=== PATIENT | female | born 1995 | race Caucasian/White ===

== ENCOUNTER 2017-05-27 11:59 | Day surgery (SDC) | payer BC ==
[~2017-05-27 11:59] MED LIST: Buffered Lidocaine 0.9% SYRIN* 5 ML/SYR SYRINGE INTRADERM ONE; Famotidine IV* 10 MG/ML 2 ML (20 mg) IV ONE; Morphine INJ* 2 MG/ML 1 ML SYRINGE IV PRN; PROCHLORPERAZINE INJ 5 MG/ML 2 ML VIAL IV PRN; fentaNYL* 50 MCG/ML 2 ML VIAL (100 MCG VIAL) IV PRN; oxyCODONE/Acetamin 5/325 MG* TAB PO PRN
[2017-05-27] MEDS ORDERED: Famotidine IV* 10 MG/ML 2 ML (20 mg) ONE (12:06)
[2017-05-27] MEDS ORDERED: Buffered Lidocaine 0.9% SYRIN* 5 ML/SYR SYRINGE ONE (12:07)
[2017-05-27 12:08] LABS: UR Preg Internal Control QC Line Present
[2017-05-27] MEDS ORDERED: KETAMINE HCL* 50 MG/ML 10 ML VIAL ONE (13:12)
[2017-05-27] MEDS ORDERED: fentaNYL* 50 MCG/ML 2 ML VIAL (100 MCG VIAL) ONE ×2 (13:12→14:08)
[2017-05-27] MEDS ORDERED: Midazolam* 1 MG/ML 2 ML VIAL (2 MG) ONE (13:12)
[2017-05-27] MEDS ORDERED: Neostigmine Methylsulfate* 2 MG/2 ML SYRINGE ONE ×2 (13:42→13:50)
[2017-05-27] MEDS ORDERED: Propofol* 10 MG/ML 20 ML BTL IV PUSH ONE (13:42)
[2017-05-27] MEDS ORDERED: Lidocaine 2% PF * 5 ML VIAL ONE (13:42)
[2017-05-27] MEDS ORDERED: Dexamethasone IV* 4 MG/ML 1 ML (4 MG) ONE (13:42)
[2017-05-27] MEDS ORDERED: Ondansetron INJ* 2 MG/ML VIAL ONE (13:42)
[2017-05-27] MEDS ORDERED: PROCHLORPERAZINE INJ 5 MG/ML 2 ML VIAL ONE ×2 (13:42→15:20)
[2017-05-27] MEDS ORDERED: Glycopyrrolate IV* 0.2 MG/ML 1 ML VIAL ONE ×2 (13:42→13:50)
[2017-05-27 15:55] VITALS: BP 103/74
--- NOTE | 2017-05-28 10:36 | OP ---
DATE OF OPERATION: 05/27/17 - SDS DATE OF : [birth year] SURGEON: Aniceto Sal MD ANESTHESIOLOGIST: Moises Ruvalcaba MD ANESTHESIA: General PRE-OP DIAGNOSIS: Chronic tonsillitis. POST-OP DIAGNOSIS: Chronic tonsillitis. OPERATIVE PROCEDURE: Tonsillectomy under general endotracheal anesthesia. COMPLICATIONS: None. DISPOSITION: Good. SPECIMENS: Tonsils. BLOOD LOSS: Minimum. DESCRIPTION OF PROCEDURE: Patient was taken to the operating room and placed in the supine position on the operating table, maintained with orotracheal intubation and general anesthesia. Patient was turned and draped for the surgery. Rickey- Alexander mouth gag was inserted, traction was applied, suspended from the Morin stand. The right tonsil was grasped, manual traction applied. Using Bovie cautery, it was dissected along its capsule, removing it from the underlying pharyngeal musculature. Left tonsil was grasped, manual traction was applied. Using Bovie cautery, it was dissected along its capsule, removing it from the underlying pharyngeal musculature. Hemostasis was ensured in both tonsillar fossa using the suction cautery. Once the hemostasis was ensured, the adenoid bed was visualized. There is no appreciable adenoid tissue. Orogastric tube was inserted into the stomach, stomach contents were suctioned. Rickey-Alexander mouth gag was released and removed. The patient tolerated the procedure well, no complications, transferred to the recovery room in stable condition. [id number]/CPS #: [id number] MTDD
== END 2017-05-27 15:58 | disposition home or self-care (01) ==
LOC: OR 11:59
PROVIDERS: ATTEND Otolaryngology
DX: J35.01 Chronic tonsillitis (principal); J03.01 Acute recurrent streptococcal tonsillitis; Z88.1 Allergy status to other antibiotic agents; Z88.0 Allergy status to penicillin
CPT/HCPCS: 81025; 88304; J0780; J1100; J2250; J2405; J2704; J3010

== ENCOUNTER 2019-09-01 18:37 | Emergency (ER) | payer BC, OTHER ==
--- OUTSIDE RECORDS SUMMARY | 2019-09-01 18:53 | XMS REPORT | Continuity of Care Document ---
:1995 External Reference #:[id number] Author Name Xochitl Mari MD (transmitted by agent of provider Wendy San) Address [address], [place] [address] Care Team Providers Name Role Phone Yoel Oh MD - Internal Care Team Information [employer] [phone] Medicine Problems Active Problems Provider Date Postconcussion syndrome Yoel Oh M.D. Onset: 09/25/2016 Gallstone Yoel Oh M.D. Onset: 02/27/2016 Abdominal pain Yoel Oh M.D. Onset: 02/27/2016 Social History Type Date Description Comments Sex Unknown ETOH Use Drinks Alcoholic Beverages Rarely Tobacco Use Start: Unknown Patient has never smoked Recreational Drug Use Denies Drug Use Smoking Status Reviewed: 07/25/19 Patient has never smoked Allergies, Adverse Reactions, Alerts Active Allergies Reaction Severity Comments Date Penicillins Urticaria Moderate 02/06/2016 ALL Antibiotics Urticaria Moderate ALL Antibiotics 06/10/2017 Medications Active Medications SIG Qnty Indications Ordering Provider Date Ibuprofen as needed Unknown 200mg Capsules Immunizations CPT Code Status Date Vaccine Lot # [id number] Given 06/16/2017 Tdap - Tetanus/Diptheria/Acellular Pertussis [id number] Vital Signs Date Vital Result Comment 07/25/2019 9:59am Height 68 inches 5'8" Weight 134.00 lb Heart Rate 64 /min BP Systolic Sitting 115 mmHg BP Diastolic Sitting 74 mmHg Body Temperature 97.7 F O2 % BldC Oximetry 99 % BMI (Body Mass Index) 20.4 kg/m2 06/10/2017 7:42am Height 68 inches Weight 132.00 lb Heart Rate 58 /min BP Systolic Sitting 112 mmHg BP Diastolic Sitting 60 mmHg Body Temperature 97.7 F O2 % BldC Oximetry 98 % BMI (Body Mass Index) 20.1 kg/m2 Results Description No Information Available Procedures Description No Information Available Medical Devices Description No Information Available Encounters Description No Information Available Assessments Date Code Description Provider 07/25/2019 S99.922A Unspecified injury of left foot, initial Xochitl Mari MD encounter Plan of Treatment 07/25/2019 - NACHO Scott99.922A Unspecified injury of left foot, initial encounterReferral:Kylah Sinha DPM, Physician Office Clin Asst Functional Status Description No Information Available Mental Status Description No Information Available Referrals Refer to Dr Reason for Referral Status Appt Date Kylah Sinha DPM Sent [address] [place] [id number] [phone]
[2019-09-01 19:10] LABS: Urine Appearance Cloudy; Urine Bacteria 1+ (Absent); Urine Bilirubin Negative (Negative); Urine Blood 2+ (Negative); Urine Color Yellow; Urine Glucose Negative (Negative); Urine Ketones Negative (Negative); Urine Nitrite Negative (Negative); Urine Protein 3+(>=500 mg/dL) (Negative); Urine Red Blood Cell 3+(>10/hpf) (Absent); Urine Specific Gravity 1.011 (1.010-1.030); Urine Squamous Epithelial Cell Present (Absent); Urine Urobilinogen Negative (Negative); Urine White Blood Cell 3+(>20/hpf) (Absent)
[2019-09-01 19:58] LABS: ABS Basophils 0.1 10^3/ul (0-0.2); ABS Eosinophils 0.1 10^3/ul (0-0.6); ABS Lymphocytes 2.4 10^3/ul (1.0-4.8); ABS Monocytes 0.8 10^3/ul (0-0.8); ABS Neutrophils 6.7 10^3/ul (1.5-7.7); Eosinophil % 0.9 %; Hematocrit 39 % (35-47); Hemoglobin 13.4 g/dL (12.0-16.0); Lymphocyte % 23.6 %; Mean Corpuscular HGB Conc 34 g/dL (31-36); Mean Corpuscular Hemoglobin 32 pg (27-31); Mean Corpuscular Volume 93 fL (80-97); Platelet Count 191 10^3/uL (150-450); Red Blood Count 4.24 10^6 /uL (3.70-4.87); Red Cell Distribution Width 14 % (10-15); White Blood Count 10.2 10^3/uL (3.5-10.8)
[2019-09-01 20:09] LABS: Activated Partial Thrombo Time 33.4 seconds (26.0-38.0); INR 1.03 (0.82-1.09)
[2019-09-01 20:14] LABS: ALT 6 U/L (7-52); AST 13 U/L (13-39); Alkaline Phosphatase 26 U/L (34-104); Anion Gap 6 mmol/L (2-11); BUN/Creatinine Ratio 13.6 (8-20); Blood Urea Nitrogen 11 mg/dL (6-24); CO2 Carbon Dioxide 30 mmol/L (22-32); Calcium 9.7 mg/dL (8.6-10.3); Chloride 101 mmol/L (101-111); EGFR African American 103.4 (>60); EGFR Non-African American 85.5 (>60); Globulin 2.5 g/dL (2-4); Glucose 94 mg/dL (70-100); Potassium 3.8 mmol/L (3.5-5.0); Sodium 137 mmol/L (135-145); Total Protein 7.5 g/dL (6.4-8.9)
[2019-09-01 20:21] LABS: HCG Pregnancy < 0.60 mIU/mL
[2019-09-01] MEDS ORDERED: Ciprofloxacin TAB* 500 MG PO ONE (20:58)
--- NOTE | 2019-09-01 20:59 | ED ---
GI/ HPI - HPI Summary HPI Summary: 24-year-old female presents with flank pain today. She had UTI symptoms about two weeks ago that she thought resolved after she drank cranberry juice. States the dysuria and urgency returned today. States she felt feverish and has chills. Denies any abdominal pain. No vaginal discharge. Denies any nausea or vomiting. denies any diarrhea or constipation. She has no history of UTI. Is currently being treated for athlete feet. - History of Current Complaint Chief Complaint: EDFlankPain Time Seen by Provider: 09/01/19 20:47 Stated Complaint: POSS UTI,KIDNEY PAIN PER PT Hx Last Menstrual Period: 05/19/14 Pain Intensity: 5 - Allergy/Home Medications Allergies/Adverse Reactions: Allergies Allergy/AdvReac Type Severity Reaction Status Date / Time azithromycin Allergy Rash Verified 09/01/19 18:44 clindamycin Allergy Rash Verified 09/01/19 18:44 Penicillins Allergy Unknown Verified 09/01/19 18:44 Reaction Details sulfamethoxazole Allergy Rash Verified 09/01/19 18:44 [From Bactrim] trimethoprim [From Bactrim] Allergy Rash Verified 09/01/19 18:44 Home Medications: Home Medications Terbinafine HCl 250 mg PO DAILY 09/01/19 [History Confirmed 09/01/19] PMH/Surg Hx/FS Hx/Imm Hx Endocrine/Hematology History: Reports: Hx Anemia - CURRENTLY Denies: Hx Diabetes, Hx Systemic Lupus Erythematosus Cardiovascular History: Denies: Hx Congestive Heart Failure, Hx Hypertension History: Denies: Hx Dialysis, Hx Renal Disease Musculoskeletal History: Denies: Hx Rheumatoid Arthritis Sensory History: Reports: Hx Contacts or Glasses - GLASSES Denies: Hx Hearing Aid Opthamlomology History: Reports: Hx Contacts or Glasses - GLASSES - Cancer History Hx Chemotherapy: No - Surgical History Surgery Procedure, Year, and Place: IUD 6 months ago; skin moles removed found benign; denies any other surgeries Infectious Disease History: No Infectious Disease History: Denies: Traveled Outside the [place] in Last 30 Days - Family History Known Family History: Positive: None - Social History Alcohol Use: None Alcohol Amount: 3 DRINKS PER WEEK Substance Use Type: Reports: None Smoking Status (MU): Never Smoked Tobacco Have You Smoked in the Last Year: No Review of Systems Positive: Fever, Chills Negative: Chest Pain Negative: Shortness Of Breath Negative: Abdominal Pain Positive: dysuria, flank pain All Other Systems Reviewed And Are Negative: Yes Physical Exam Triage Information Reviewed: Yes Vital Signs On Initial Exam: Initial Vitals Temp Pulse Resp BP Pulse Ox 99.2 F 75 16 130/92 98 09/01/19 18:39 09/01/19 18:39 09/01/19 18:39 09/01/19 18:39 09/01/19 18:39 Vital Signs Reviewed: Yes Appearance: Positive: Well-Appearing Skin: Positive: Warm, Dry Head/Face: Positive: Normal Head/Face Inspection Eyes: Positive: Normal, Conjunctiva Clear ENT: Positive: Pharynx normal Respiratory/Lung Sounds: Positive: Clear to Auscultation, Breath Sounds Present Cardiovascular: Positive: Normal, RRR Abdomen Description: Positive: Nontender, Soft, CVA Tenderness (R). Negative: CVA Tenderness (L) Bowel Sounds: Positive: Present Musculoskeletal: Positive: Normal Neurological: Positive: Normal Psychiatric: Positive: Normal Procedures - Sedation Patient Received Moderate/Deep Sedation with Procedure: No Diagnostics - Vital Signs Vital Signs Temp Pulse Resp BP Pulse Ox 09/01/19 20:41 97.9 F 83 16 135/89 99 09/01/19 18:39 99.2 F 75 16 130/92 98 - Laboratory Lab Results: Lab Results 09/01/19 09/01/19 09/01/19 Range/Units 18:55 19:47 19:47 WBC 10.2 (3.5-10.8) 10^3/uL RBC 4.24 (3.70-4.87) 10^6 /uL Hgb 13.4 (12.0-16.0) g/dL Hct 39 (35-47) % MCV 93 (80-97) fL MCH 32 H (27-31) pg MCHC 34 (31-36) g/dL RDW 14 (10-15) % Plt Count 191 (150-450) 10^3/uL MPV 9.0 (7.4-10.4) fL Neut % (Auto) 66.5 % Lymph % (Auto) 23.6 % Gonzales % (Auto) 8.4 % Eos % (Auto) 0.9 % Baso % (Auto) 0.6 % Absolute Neuts (auto) 6.7 (1.5-7.7) 10^3/ul Absolute Lymphs (auto) 2.4 (1.0-4.8) 10^3/ul Absolute Monos (auto) 0.8 (0-0.8) 10^3/ul Absolute Eos (auto) 0.1 (0-0.6) 10^3/ul Absolute Basos (auto) 0.1 (0-0.2) 10^3/ul Absolute Nucleated RBC 0.0 10^3/ul Nucleated RBC % 0.0 INR (Anticoag Therapy) (0.82-1.09) APTT (26.0-38.0) seconds Sodium 137 (135-145) mmol/L Potassium 3.8 (3.5-5.0) mmol/L Chloride 101 (101-111) mmol/L Carbon Dioxide 30 (22-32) mmol/L Anion Gap 6 (2-11) mmol/L BUN 11 (6-24) mg/dL Creatinine 0.81 (0.51-0.95) mg/dL Est GFR ( Amer) 103.4 (>60) Est GFR (Non-Af Amer) 85.5 (>60) BUN/Creatinine Ratio 13.6 (8-20) Glucose 94 (70-100) mg/dL Lactic Acid (0.5-2.0) mmol/L Calcium 9.7 (8.6-10.3) mg/dL Total Bilirubin 0.60 (0.2-1.0) mg/dL AST 13 (13-39) U/L ALT 6 L (7-52) U/L Alkaline Phosphatase 26 L (34-104) U/L Total Protein 7.5 (6.4-8.9) g/dL Albumin 5.0 (3.2-5.2) g/dL Globulin 2.5 (2-4) g/dL Albumin/Globulin Ratio 2.0 (1-3) Beta HCG, Quant < 0.60 mIU/mL Urine Color Yellow Urine Appearance Cloudy Urine pH 9.0 (5-9) Ur Specific [place] 1.011 (1.010-1.030) Urine Protein 3+(>=500 mg/dl) A (Negative) Urine Ketones Negative (Negative) Urine Blood 2+ A (Negative) Urine Nitrate Negative (Negative) Urine Bilirubin Negative (Negative) Urine Urobilinogen Negative (Negative) Ur Leukocyte Esterase 2+ A (Negative) Urine WBC (Auto) 3+(>20/hpf) A (Absent) Urine RBC (Auto) 3+(>10/hpf) A (Absent) Ur Squamous Epith Cells Present A (Absent) Urine Bacteria 1+ A (Absent) Urine Glucose Negative (Negative) 09/01/19 09/01/19 Range/Units 19:47 19:48 WBC (3.5-10.8) 10^3/uL RBC (3.70-4.87) 10^6 /uL Hgb (12.0-16.0) g/dL Hct (35-47) % MCV (80-97) fL MCH (27-31) pg MCHC (31-36) g/dL RDW (10-15) % Plt Count (150-450) 10^3/uL MPV (7.4-10.4) fL Neut % (Auto) % Lymph % (Auto) % Gonzales % (Auto) % Eos % (Auto) % Baso % (Auto) % Absolute Neuts (auto) (1.5-7.7) 10^3/ul Absolute Lymphs (auto) (1.0-4.8) 10^3/ul Absolute Monos (auto) (0-0.8) 10^3/ul Absolute Eos (auto) (0-0.6) 10^3/ul Absolute Basos (auto) (0-0.2) 10^3/ul Absolute Nucleated RBC 10^3/ul Nucleated RBC % INR (Anticoag Therapy) 1.03 (0.82-1.09) APTT 33.4 (26.0-38.0) seconds Sodium (135-145) mmol/L Potassium (3.5-5.0) mmol/L Chloride (101-111) mmol/L Carbon Dioxide (22-32) mmol/L Anion Gap (2-11) mmol/L BUN (6-24) mg/dL Creatinine (0.51-0.95) mg/dL Est GFR ( Amer) (>60) Est GFR (Non-Af Amer) (>60) BUN/Creatinine Ratio (8-20) Glucose (70-100) mg/dL Lactic Acid 0.6 (0.5-2.0) mmol/L Calcium (8.6-10.3) mg/dL Total Bilirubin (0.2-1.0) mg/dL AST (13-39) U/L ALT (7-52) U/L Alkaline Phosphatase (34-104) U/L Total Protein (6.4-8.9) g/dL Albumin (3.2-5.2) g/dL Globulin (2-4) g/dL Albumin/Globulin Ratio (1-3) Beta HCG, Quant mIU/mL Urine Color Urine Appearance Urine pH (5-9) Ur Specific [place] (1.010-1.030) Urine Protein (Negative) Urine Ketones (Negative) Urine Blood (Negative) Urine Nitrate (Negative) Urine Bilirubin (Negative) Urine Urobilinogen (Negative) Ur Leukocyte Esterase (Negative) Urine WBC (Auto) (Absent) Urine RBC (Auto) (Absent) Ur Squamous Epith Cells (Absent) Urine Bacteria (Absent) Urine Glucose (Negative) Result Diagrams: 09/01/19 19:47 09/01/19 19:47 Lab Statement: Any lab studies that have been ordered have been reviewed, and results considered in the medical decision making process. - Ultrasound No standard instances Ultrasound Interpretation Completed By: Radiologist Summary of Ultrasound Findings: IMPRESSION: Normal renal ultrasound. GIGU Course/Dx - Course Course Of Treatment: 24-year-old female presents with flank pain today. She had UTI symptoms about two weeks ago that she thought resolved after she drank cranberry juice. States the dysuria and urgency returned today. States she felt feverish and has chills. Denies any abdominal pain. No vaginal discharge. Denies any nausea or vomiting. denies any diarrhea or constipation. She has no history of UTI. Is currently being treated for athlete feet. On exam tenderness right flank. White blood count normal. Urine shows a UTI. Ultrasound normal. with flank pain will treat as potential complicated uti with Cipro for 7 days due to allergies. Patient understands and agrees with plan. - Diagnoses Differential Diagnoses - Female: Pyelonephritis, Urinary Tract Infection, Ureteral Calculi Provider Diagnoses: UTI (urinary tract infection) Discharge ED - Sign-Out/Discharge Documenting (check all that apply): Patient Departure - Discharge Plan Condition: Good Disposition: HOME Prescriptions: Ciprofloxacin TAB* [Cipro 500 MG TAB*] 500 mg PO BID #13 tab Patient Education Materials: Urinary Tract Infection in Women (ED) [place]: [facility] [place] [facility] [Outside] Additional Instructions: Take Cipro twice a day for 7 days drink plenty of fluids est care with primary Return to ED if develop any new or worsening symptoms - Billing Disposition and Condition Condition: GOOD Disposition: Home
[2019-09-01 21:12] VITALS: BP 111/82
--- NOTE | 2019-09-03 06:19 | ED ---
Imaging and Labs Follow Up Follow Up Type: Labs/Cultures Labs/Culture Result: [email or web address] leif 100,000 Patient Communication/Plan: placed on cipro - will await sensitivities Provider Diagnoses: UTI (urinary tract infection)
== END 2019-09-01 21:11 | disposition home or self-care (01) ==
LOC: ED 18:37
DX: N39.0 Urinary tract infection, site not specified (principal); Z88.0 Allergy status to penicillin; Z79.899 Other long term (current) drug therapy; D64.9 Anemia, unspecified
CPT/HCPCS: 36415; 76775; 80053; 81003; 81015; 83605; 84702; 85025; 85610; 85730; 87040; 87077; 87086; 87186; 99283; A9270-GY